=== PATIENT | female | born 1980 | race Hispanic/Latino ===

== ENCOUNTER → 2025-04-16 | Outpatient (CLI) | payer OTHER, SELFPAY ==
--- NOTE | 2025-04-17 05:53 | HMCIMG ---
EXAM: CR tomogram of the abdomen. CLINICAL HISTORY: Rule out a kidney stone. COMPARISON: Same-day abdominal radiograph. FINDINGS: Multiple tomographic views of the abdomen were obtained. Findings: A relatively well-defined 14 mm radiopacity in the right kidney lower pole calyx. No other obvious radiopacities in the region of the bilateral kidney. No free air under the diaphragm. The bowel gas pattern appears unremarkable. No overt pneumoperitoneum is noted. No abnormal calcifications are seen overlying the kidneys or the course of the ureters. No organomegaly. There is no acute osseous abnormality. Impression: A relatively well-defined 14 mm radiopacity in the right kidney lower pole calyx. No other obvious radiopacities in the region of the bilateral kidney. No free air under the diaphragm. Nonobstructive bowel gas pattern. /[place]
--- NOTE | 2025-04-17 05:53 | HMCIMG ---
EXAM: CR Abdomen, 1 view. CLINICAL HISTORY: Rule out kidney stone. COMPARISON: None provided. FINDINGS: Nonobstructed nonspecific bowel gas pattern. No free air is evident. A 1.4 cm rounded calcific opacity projecting in the right kidney lower pole calyx, probably a right renal calculus. A tiny 2 mm calcific opacity in the pelvis medial to the right ischial spine. The possibility of a right distal ureteric calculus is not excluded. No aggressive appearing osseous lesion. IMPRESSION: A 1.4 cm rounded calcific opacity projecting in the right kidney lower pole calyx, probably a right renal calculus. A tiny 2 mm calcific opacity in the pelvis medial to the right ischial spine. The possibility of a right distal ureteric calculus is not excluded. /[place]
== END | disposition home or self-care (01) ==
LOC: RAH 15:53
PROVIDERS: ATTEND Urology
DX: N20.0 Calculus of kidney (principal)
CPT/HCPCS: 74018; 76100